=== PATIENT | female | born 1950 | race Caucasian/White ===

== ENCOUNTER 2020-11-23 08:38 | Observation (INO) | payer MEDICARE ==
[~2020-11-23] VITALS: Ht 149.9 cm; Wt 64.0 kg
[~2020-11-23 08:38] MED LIST: ASPIRIN CHEWABL81 MG PO; COREG 12.5MG12.5 MG PO; CRESTOR20 MG PO; HYDROCHLOROTHIA25 MG PO; ISOSORBIDE MON120 MG PO; LEVOTHYROXINE88 MCG PO; NITROSTAT 0.40.4 MG SL; PLAVIX 75 MG TA75 MG PO; RANEXA500 MG PO; ZESTRIL20 MG PO
[2020-11-23 09:12] LABS: HEMOGLOBIN 13.3 gm/dl (12.3-15.3); RED BLOOD COUNT 4.48 M/UL (4.00-5.10); WHITE BLOOD COUNT 7.9 K/UL (4.5-11.0)
[2020-11-23 09:47] LABS: BUN/CREATININE RATIO 16 (0-10)
[2020-11-23] MEDS ORDERED: COZAAR 50MG TAB50 MG PO (11:01)
[2020-11-23] MEDS ORDERED: HYDROCHLOROTHIA25 MG PO (11:01)
[2020-11-23] MEDS ORDERED: VITAMIN D3125 MCG PO (11:02)
[2020-11-23] MEDS ORDERED: FOSAMAX70 MG PO (12:55)
[2020-11-23] MEDS ORDERED: XANAX0.25 MG PO (13:00)
[2020-11-24 06:16] LABS: HEMOGLOBIN 12.8 gm/dl (12.3-15.3); RED BLOOD COUNT 4.21 M/UL (4.00-5.10)
[2020-11-24 06:18] LABS: WHITE BLOOD COUNT 5.8 K/UL (4.5-11.0)
[2020-11-24 06:33] LABS: BUN/CREATININE RATIO 15 (0-10)
--- NOTE | 2020-11-24 16:43 | NUR ---
INSTRUCTED ON SIGNS AND SYMPTOMS OF CHEST PAIN. KEEP FOLLOW UP APPOINTMENTS SCHEDULED. VERBALIZED UNDERSTANDING MICKY MORRISON R.N.
== END 2020-11-24 17:05 | disposition home or self-care (01) ==
LOC: ER1 08:38 → CDU 10:44 → MED SURG 4 10:44
PROVIDERS: Physician Assistant; ADMIT Internal Medicine
DX: R07.89 Other chest pain (principal); I25.119 Atherosclerotic heart disease of native coronary artery with unspecified angina pectoris; I10 Essential (primary) hypertension; E78.5 Hyperlipidemia, unspecified; I49.5 Sick sinus syndrome; E03.9 Hypothyroidism, unspecified; M81.0 Age-related osteoporosis without current pathological fracture; I25.2 Old myocardial infarction; E87.6 Hypokalemia; I27.20 Pulmonary hypertension, unspecified; I08.3 Combined rheumatic disorders of mitral, aortic and tricuspid valves; Z87.891 Personal history of nicotine dependence; Z95.5 Presence of coronary angioplasty implant and graft; Z95.810 Presence of automatic (implantable) cardiac defibrillator; Z82.49 Family history of ischemic heart disease and other diseases of the circulatory system; Z88.1 Allergy status to other antibiotic agents; Z79.02 Long term (current) use of antithrombotics/antiplatelets; Z79.82 Long term (current) use of aspirin; Z79.899 Other long term (current) drug therapy; Z20.822 Contact with and (suspected) exposure to COVID-19
CPT/HCPCS: ECHO; 36415; 71045; 78452; 80048; 80053; 80061; 82550; 82553; 83874; 84439; 84443; 84484; 85025; 93005; 93017; 93306; 99285; A9502; G0378; J2785; U0002